=== PATIENT | female | born 1995 ===

== ENCOUNTER 2016-11-29 18:02 | Emergency (ER) | payer MEDICAID ==
[2016-11-29 18:22] VITALS: TEMP 98.1; O2SAT 100
[2016-11-29] MEDS ORDERED: Sodium Chloride 0.9% 1,000 ML IV ONE (19:47)
--- NOTE | 2016-11-29 20:29 | C.PDOC ---
History Of Present Illness 21 year old patient presents to the ED complaining of vomiting for the past month. Patient is 2 months ; 2 para 1. Patient denies vaginal bleeding, urinary symptoms, fever, or abdominal pain. Time Seen by Provider: 11/29/16 19:41 Chief Complaint (Nursing): GI Problem History Per: Patient History/Exam Limitations: no limitations Onset/Duration Of Symptoms: Other (1 month) Current Symptoms Are (Timing): Still Present Context: Other Severity: Mild Pain Scale Rating Of: 0 Quality Of Discomfort: Other Associated Symptoms: Nausea, Vomiting Exacerbating Factors: None Alleviating Factors: None Last Bowel Movement: Today Recent travel outside of the [place]: No Abnormal Vaginal Bleeding: No : 2 Para: 1 Past Medical History Reviewed: Historical Data, Nursing Documentation, Vital Signs Vital Signs: Last Vital Signs Temp 98.1 F 11/29/16 18:22 Pulse 76 11/29/16 18:22 Resp 16 11/29/16 18:22 BP 119/77 11/29/16 18:22 Pulse Ox 100 11/29/16 21:58 Family History: States: Unknown Family Hx - Social History Hx Alcohol Use: No Hx Substance Use: No - Immunization History Hx Tetanus Toxoid Vaccination: Yes Hx Influenza Vaccination: Yes Hx Pneumococcal Vaccination: No Review Of Systems Except As Marked, All Systems Reviewed And Found Negative. Constitutional: Negative for: Fever Gastrointestinal: Positive for: Vomiting. Negative for: Abdominal Pain Genitourinary: Negative for: Dysuria, Frequency, Vaginal Bleeding Physical Exam - Physical Exam Appears: Non-toxic, No Acute Distress Skin: Warm, Dry Head: Atraumatic, Normacephalic Eye(s): bilateral: Normal Inspection, EOMI Oral Mucosa: Moist Neck: Normal ROM, Supple Chest: Symmetrical Cardiovascular: Rhythm Regular Respiratory: Normal Breath Sounds, No Rales, No Rhonchi, No Wheezing Gastrointestinal/Abdominal: Soft, No Tenderness Back: Normal Inspection Extremity: Normal ROM Neurological/Psych: Oriented x3 Gait: Steady ED Course And Treatment O2 Sat by Pulse Oximetry: 100 (RA) Pulse Ox Interpretation: Normal Medical Decision Making Medical Decision Making: Plan: * Pepcid * Reglan * IV fluids * Labs Progress: Disposition - Disposition Referrals: [facility] [Outside] Disposition: HOME/ ROUTINE Disposition Time: 21:50 Condition: GOOD Prescriptions: Doxylamine Succinate [Unisom] 1 tab PO BID #60 tablet Doxylamine/Pyridoxine HCl (B6) [Diclegis 10 mg-10 mg] 1 tcp PO BID #60 tcp Nitrofurantoin Macrocrystals [Macrobid] 1 cap PO BID #14 cap Pyridoxine [Vitamin B6] 1 tab PO BID #60 tab Instructions: Hyperemesis Gravidarum (ED), Urinary Tract Infection in (ED) - Clinical Impression Clinical Impression: Hyperemesis, UTI in - Scribe Statement The provider has reviewed the documentation as recorded by the Ryan Ruiz Provider Attestation: All medical record entries made by the Ryan were at my direction and personally dictated by me. I have reviewed the chart and agree that the record accurately reflects my personal performance of the history, physical exam, medical decision making, and the department course for this patient. I have also personally directed, reviewed, and agree with the discharge instructions and disposition.
[2016-11-29 21:16] LABS: RBC URINE 20 /hpf (0-3); URINE BACTERIA FEW (<OCC); URINE BILIRUBIN NEGATIVE (NEGATIVE); URINE BLOOD NEGATIVE (NEGATIVE); URINE COLOR Yellow (YELLOW); URINE GLUCOSE (UA) NORMAL (Normal); URINE KETONE 2+ mg/dL (NEGATIVE); URINE LEUKOCYTE ESTERASE TRACE Leu/uL (Negative); URINE PROTEIN NEGATIVE (NEGATIVE); URINE UROBILINOGEN NORMAL mg/dL (0.2-1.0); WBC URINE 27 /hpf (0-5)
[2016-11-29 22:16] VITALS: BP 104/72; PULSE 72; RESP 18
== END 2016-11-29 22:08 | disposition home or self-care (01) ==
LOC: C.ER 18:02
DX: O23.41 Unspecified infection of urinary tract in pregnancy, first trimester (principal); O21.0 Mild hyperemesis gravidarum; Z3A.08 8 weeks gestation of pregnancy
CPT/HCPCS: 81001; 96374; 99284; J2765; J7040